=== PATIENT | male | born 1940 | race African-American/Black ===

== ENCOUNTER 2023-05-03 09:49 | Emergency (ER) | payer OTHER ==
[2023-05-03 10:15] VITALS: BMI 42.4
[2023-05-03 11:22] LABS: BASO % 0.6 % (0-2.0); EOS % 1.8 % (0-4.5); HEMATOCRIT 31.8 % (35.4-49); HEMOGLOBIN 10.4 GM/dL (11.7-16.9); LYMPH % 29.7 % (8-40); MCH 29.5 pg (25.7-33.7); MCHC 32.6 g/dl (32.0-35.9); MEAN CELL VOLUME 90.3 fl (80-96); MEAN PLT VOLUME 8.5 fl (7.5-11.1); MONO % 9.8 % (3.8-10.2); NEUT % 58.1 % (42.8-82.8); PLATELET COUNT 173 10^3/uL (134-434); RBC 3.52 M/mm3 (4.00-5.60); WHITE BLOOD COUNT 6.4 K/mm3 (4.0-10.0)
[2023-05-03 11:52] LABS: POTASSIUM 4.2 mmol/L (3.5-5.1)
[2023-05-03 11:54] LABS: CALCIUM 8.4 mg/dL (8.5-10.1)
[2023-05-03 11:55] LABS: BLOOD UREA NITROGEN 66.5 mg/dL (7-18)
[2023-05-03 11:57] LABS: CREATININE 4.9 mg/dL (0.55-1.3)
[2023-05-03 11:59] LABS: BILIRUBIN,TOTAL 0.3 mg/dL (0.2-1); TOT PROT 6.6 g/dl (6.4-8.2)
[2023-05-03] MEDS ORDERED: diphenhydrAMINE HCL 25 MG CAPSULE (FP) PO ONE ×2 (12:11→12:19)
[2023-05-03] MEDS ORDERED: ACETAMINOPHEN 500 MG TABLET (FP) PO ONE (12:11)
[2023-05-03] MEDS ORDERED: ACETAMINOPHEN 325 MG TABLET (FP) ONE (12:20)
[2023-05-03 12:37] VITALS: BP 186/85; PULSE 55; RESP 20; TEMP 97.3
== END 2023-05-03 12:37 | disposition home or self-care (01) ==
LOC: JER 09:49
DX: R10.9 Unspecified abdominal pain (principal)
CPT/HCPCS: 36415; 80053; 83690; 85025; 99283-25

== ENCOUNTER 2024-02-26 16:27 | Emergency (ER) | payer OTHER ==
[2024-02-26 16:43] VITALS: BMI 30.9
[2024-02-26 17:17] LABS: EOS % 2.2 % (0-4.5); HEMATOCRIT 33.9 % (35.4-49); HEMOGLOBIN 11.3 GM/dL (11.7-16.9); LYMPH % 31.1 % (8-40); MCH 31.5 pg (25.7-33.7); MCHC 33.3 g/dl (32.0-35.9); MEAN CELL VOLUME 94.9 fl (80-96); MEAN PLT VOLUME 7.3 fl (7.5-11.1); MONO % 16.8 % (3.8-10.2); NEUT % 48.9 % (42.8-82.8); PLATELET COUNT 146 10^3/uL (134-434); RBC 3.57 M/mm3 (4.00-5.60); RDW 15.7 % (11.9-15.9); WHITE BLOOD COUNT 6.4 K/mm3 (4.0-10.0)
[2024-02-26] MEDS ORDERED: FAMOTIDINE 20 MG/50 ML IVPB 20 MG/50 ML MG IVPB ONE (17:35)
[2024-02-26] MEDS: FAMOTIDINE 20 MG/50 ML IVPB 20 MG/50 ML MG IVPB ONE (17:43)
[2024-02-26 17:48] LABS: ALBUMIN 3.2 g/dl (3.4-5.0); BLOOD UREA NITROGEN 47.3 mg/dL (7-18); CALCIUM 8.6 mg/dL (8.5-10.1); MAGNESIUM 2.1 mg/dL (1.8-2.4); POTASSIUM 4.3 mmol/L (3.5-5.1)
[2024-02-26 17:51] LABS: BILIRUBIN,TOTAL 0.4 mg/dL (0.2-1); CREATININE 7.2 mg/dL (0.55-1.3); PHOSPHOROUS 4.2 mg/dL (2.5-4.9); TOT PROT 6.7 g/dl (6.4-8.2)
[2024-02-26 18:02] LABS: N-TERMINAL BNP 1905.4 pg/ml (5-450)
[2024-02-26 18:43] VITALS: BP 156/86; PULSE 57; RESP 20; TEMP 98.9
== END 2024-02-26 18:44 | disposition home or self-care (01) ==
LOC: JER 16:27
PROC: 3E033GC Introduction of Other Therapeutic Substance into Peripheral Vein, Percutaneous Approach (ICD-10-PCS; principal; 2024-02-26)
DX: I11.0 Hypertensive heart disease with heart failure (principal); I50.9 Heart failure, unspecified; J06.9 Acute upper respiratory infection, unspecified; R05.9 Cough, unspecified; R07.89 Other chest pain; Z20.822 Contact with and (suspected) exposure to COVID-19
CPT/HCPCS: 0241U-QW; 36415; 71045-TC-FY; 80053; 83735; 83880; 84100; 84484; 85025; 93005; 93010; 96365; 99285-25

== ENCOUNTER 2024-05-17 05:01 | Emergency (ER) | payer OTHER ==
[2024-05-17 05:14] VITALS: TEMP 97.9; BMI 34.3
[2024-05-17] MEDS ORDERED: ACETAMINOPHEN INJECTION 100 ML ONE (06:03)
[2024-05-17] MEDS: ACETAMINOPHEN 1000 MG/100 ML BAG IVPB ONE (06:29)
[2024-05-17 06:51] LABS: CHLORIDE 108 mmol/L (98-107); SODIUM 140 mmol/L (136-145)
[2024-05-17 06:53] LABS: ALBUMIN 3.5 g/dl (3.4-5.0); ANION GAP 8 mmol/L (4-13); BLOOD UREA NITROGEN 99.3 mg/dL (7-18); CALCIUM 9.3 mg/dL (8.5-10.1); CO2 25 mmol/L (21-32); GLUCOSE,RANDOM 98 mg/dL (74-106); MAGNESIUM 2.1 mg/dL (1.8-2.4)
[2024-05-17 06:56] LABS: SGOT/AST 13 U/L (15-37); SGPT/ALT 19 U/L (13-61)
[2024-05-17 06:57] LABS: BILIRUBIN,TOTAL 0.4 mg/dL (0.2-1); TOT PROT 7.3 g/dl (6.4-8.2)
[2024-05-17 06:59] LABS: ALK PHOS 57 U/L (45-117)
[2024-05-17 07:10] LABS: CREATININE 10.2 mg/dL (0.55-1.3)
[2024-05-17 09:15] LABS: CHLORIDE 108 mmol/L (98-107); POTASSIUM 5.8 mmol/L (3.5-5.1); SODIUM 142 mmol/L (136-145)
[2024-05-17 09:17] LABS: BLOOD UREA NITROGEN 99.8 mg/dL (7-18); GLUCOSE,RANDOM 82 mg/dL (74-106)
[2024-05-17 09:18] LABS: ANION GAP 8 mmol/L (4-13); CALCIUM 9.2 mg/dL (8.5-10.1); CO2 26 mmol/L (21-32)
[2024-05-17 09:33] LABS: CREATININE 10.1 mg/dL (0.55-1.3)
[2024-05-17] MEDS ORDERED: SODIUM CHLORIDE 250 ML IV PRN (09:41)
[2024-05-17 10:30] VITALS: BP 168/70; PULSE 58; RESP 16
== END 2024-05-17 10:36 | disposition home or self-care (01) ==
LOC: JER 05:01 → JERBED 08:56 → UNDOADMOB 08:56 → JER 10:36
PROC: 3E033NZ Introduction of Analgesics, Hypnotics, Sedatives into Peripheral Vein, Percutaneous Approach (ICD-10-PCS; principal; 2024-05-17)
DX: R10.32 Left lower quadrant pain (principal); I12.0 Hypertensive chronic kidney disease with stage 5 chronic kidney disease or end stage renal disease; N18.6 End stage renal disease; R11.2 Nausea with vomiting, unspecified; Z99.2 Dependence on renal dialysis
CPT/HCPCS: 36415; 74177-TC; 80048; 80053; 83690; 83735; 84484; 93005; 93010; 96374; 99285-25; J0131

== ENCOUNTER 2024-08-26 12:34 | Inpatient (IN) | payer OTHER ==
[2024-08-26] MEDS ORDERED: ACETAMINOPHEN INJECTION 100 ML ONE (13:41)
[2024-08-26] MEDS: ACETAMINOPHEN 1000 MG/100 ML BAG IVPB ONE (13:46)
[2024-08-26 14:05] LABS: VENOUS BASE EXCESS 5.3 mmol/L (-2-2); VENOUS O2 SATURATION 40.1 % (70-80); VENOUS PCO2 50.1 mmHg (38-52); VENOUS PH 7.41 (7.310-7.410)
[2024-08-26 14:07] LABS: BASO % 0.7 % (0-2.0); EOS % 0.1 % (0-4.5); HEMATOCRIT 34.8 % (35.4-49); HEMOGLOBIN 11.6 GM/dL (11.7-16.9); LYMPH % 12.5 % (8-40); MCH 32.4 pg (25.7-33.7); MCHC 33.3 g/dl (32.0-35.9); MEAN CELL VOLUME 97.5 fl (80-96); MEAN PLT VOLUME 8.2 fl (7.5-11.1); MONO % 16.6 % (3.8-10.2); NEUT % 70.1 % (42.8-82.8); PLATELET COUNT 243 10^3/uL (134-434); RBC 3.57 M/mm3 (4.00-5.60); RDW 13.6 % (11.9-15.9); WHITE BLOOD COUNT 12.6 K/mm3 (4.0-10.0)
[2024-08-26 14:13] LABS: INR 1.04 (0.83-1.09); PROTHROMBIN TIME (PATIENT) 11.3 SEC (9.7-13.0)
[2024-08-26 14:15] LABS: ACTIVATED PTT 27.1 SECONDS (25.2-36.5)
[2024-08-26 14:21] LABS: CHLORIDE 94 mmol/L (98-107); POTASSIUM 4.6 mmol/L (3.5-5.1); SODIUM 135 mmol/L (136-145)
[2024-08-26 14:23] LABS: ALBUMIN 3.3 g/dl (3.4-5.0); ANION GAP 9 mmol/L (4-13); BLOOD UREA NITROGEN 52.1 mg/dL (7-18); CALCIUM 9.5 mg/dL (8.5-10.1); CO2 32 mmol/L (21-32); GLUCOSE,RANDOM 113 mg/dL (74-106); MAGNESIUM 2.4 mg/dL (1.8-2.4)
[2024-08-26 14:26] LABS: SGOT/AST 12 U/L (15-37); SGPT/ALT 16 U/L (13-61)
[2024-08-26 14:28] LABS: TOT PROT 7.6 g/dl (6.4-8.2)
[2024-08-26 14:29] LABS: ALK PHOS 68 U/L (45-117)
[2024-08-26 14:32] LABS: BILIRUBIN,TOTAL 0.4 mg/dL (0.2-1); CREATININE 7.6 mg/dL (0.55-1.3)
[2024-08-26] MEDS: ONDANSETRON 4 MG/2 ML VIAL IVPUSH ONE ×2 (14:48→14:58)
[2024-08-26] MEDS ORDERED: ONDANSETRON 4 MG/2 ML VIAL ONE (14:49)
[2024-08-26] MEDS ORDERED: PIPERACILLIN/TAZOB 3.375 GM 3.375 GM/50 ML BAG IVPB ONE (16:46)
[2024-08-26] MEDS: PIPERACILLIN/TAZOB 3.375 GM 3.375 GM in DEXTROSE 5%-WATER - 50 ML IVPB ONE (16:53)
[2024-08-26 17:04] LABS: EPI CELLS 6 /uL (0-25.1); HYALINE CASTS 1 /uL (0-3.1); URINE APPEARANCE CLOUDY; URINE BACTERIA 280 /uL (0-1359); URINE BILIRUBIN NEGATIVE (NEGATIVE); URINE COLOR YELLOW; URINE GLUCOSE (UA) NEGATIVE (NEGATIVE); URINE KETONE NEGATIVE (NEGATIVE); URINE LEUK ESTERASE 2+ (NEGATIVE); URINE NITRITE NEGATIVE (NEGATIVE); URINE PROTEIN 3+ (NEGATIVE); URINE RBC 66 /uL (0-23.9); URINE UROBILINOGEN 0.2 mg/dL (0.2-1.0); URINE WBC 844 /uL (0-25.8)
[2024-08-26] MEDS ORDERED: VANCOMYCIN 1 GM PREMIX (F) 1 GM/200 ML BAG ONE (17:23)
[2024-08-26] MEDS: VANCOMYCIN 1,000 MG in DEXTROSE 5%-WATER - 250 ML IVPB ONE (17:35)
[2024-08-26] MEDS: MELATONIN 5 MG TABLETS PO ONE (21:17)
[2024-08-26] MEDS: hydrALAZINE HCL 50 MG TABLET (FP) PO SCH (21:17)
[2024-08-26] MEDS: ACETAMINOPHEN 325 MG TABLET (FP) PO PRN (21:17)
[2024-08-26] MEDS: ATORVASTATIN CA 40 MG TABLET (FP) PO SCH (21:17)
[2024-08-26] MEDS: PIPERACILLIN/TAZOB 2.25 GM 2.25 GM/50 ML BAG IVPB SCH (21:21)
[2024-08-26] MEDS ORDERED: PIPERACILLIN/TAZOB 2.25 GM 2.25 GM in DEXTROSE 5%-WATER - 50 ML IVPB SCH (22:00)
[2024-08-27] MEDS ORDERED: ONDANSETRON 4 MG/2 ML VIAL IVPUSH PRN (07:34)
[2024-08-27] MEDS: NIFEdipine E.R. 90 MG TABLET PO SCH (09:11)
[2024-08-27] MEDS: ASPIRIN COATED 81 MG TABLET.EC PO SCH (09:11)
[2024-08-27] MEDS ORDERED: SODIUM CHLORIDE 250 ML IV PRN (10:40)
[2024-08-27] MEDS: PANTOPRAZOLE SODIUM 40 MG VIAL IVPUSH SCH (10:55)
[2024-08-27] MEDS: POLYETHYLENE GLYCOL (HEALTHYLAX) 3350 17 GM PACKET PO SCH (21:11)
[2024-08-28] MEDS: PIPERACILLIN/TAZOB 2.25 GM 2.25 GM/50 ML BAG IVPB SCH (12:15)
[2024-08-29 10:19] LABS: HEMATOCRIT 31.7 % (35.4-49); HEMOGLOBIN 10.5 GM/dL (11.7-16.9); MCH 32.3 pg (25.7-33.7); MCHC 33.2 g/dl (32.0-35.9); MEAN CELL VOLUME 97.4 fl (80-96); MEAN PLT VOLUME 7.6 fl (7.5-11.1); PLATELET COUNT 264 10^3/uL (134-434); RBC 3.26 M/mm3 (4.00-5.60); RDW 13.6 % (11.9-15.9); WHITE BLOOD COUNT 11.3 K/mm3 (4.0-10.0)
[2024-08-29] MEDS ORDERED: SODIUM CHLORIDE 250 ML IV PRN (14:06)
[2024-08-30] MEDS: HEPARIN NA (PORCINE) 5,000 UNITS/ML 1ML VIAL IVPUSH ONE (08:50)
[2024-08-30 09:01] LABS: HEMATOCRIT 29.8 % (35.4-49); HEMOGLOBIN 9.8 GM/dL (11.7-16.9); MCH 32.5 pg (25.7-33.7); MEAN CELL VOLUME 98.5 fl (80-96); MEAN PLT VOLUME 7.6 fl (7.5-11.1); PLATELET COUNT 276 10^3/uL (134-434); RBC 3.03 M/mm3 (4.00-5.60); RDW 13.4 % (11.9-15.9); WHITE BLOOD COUNT 11.9 K/mm3 (4.0-10.0)
[2024-08-30 09:22] LABS: CHLORIDE 96 mmol/L (98-107); POTASSIUM 4.1 mmol/L (3.5-5.1); SODIUM 136 mmol/L (136-145)
[2024-08-30 09:35] LABS: ANION GAP 12 mmol/L (4-13); BLOOD UREA NITROGEN 68.4 mg/dL (7-18); CALCIUM 8.9 mg/dL (8.5-10.1); CO2 28 mmol/L (21-32); GLUCOSE,RANDOM 136 mg/dL (74-106)
[2024-08-30 09:43] LABS: CREATININE 10.4 mg/dL (0.55-1.3)
[2024-08-30 13:28] VITALS: RESP 18
[2024-08-31] MEDS: PANTOPRAZOLE 40 MG TABLET PO SCH (10:42)
[2024-08-31] MEDS ORDERED: SODIUM CHLORIDE 250 ML IV PRN (10:45)
[2024-08-31] MEDS: BANATROL PLUS POWDER PACKET PO SCH (14:38)
[2024-09-01 09:29] LABS: HEMATOCRIT 31.6 % (35.4-49); HEMOGLOBIN 10.6 GM/dL (11.7-16.9); MCH 32.4 pg (25.7-33.7); MCHC 33.4 g/dl (32.0-35.9); MEAN PLT VOLUME 7.6 fl (7.5-11.1); PLATELET COUNT 341 10^3/uL (134-434); RBC 3.26 M/mm3 (4.00-5.60); RDW 13.2 % (11.9-15.9); WHITE BLOOD COUNT 11.1 K/mm3 (4.0-10.0)
[2024-09-01] MEDS: EPOETIN ALFA-EPBX 4,000 UNIT/ML VIAL IVPUSH ONE (10:47)
[2024-09-01] MEDS: LACTOBACILLUS ACIDOPHILUS 1 TABLET PO SCH (13:18)
[2024-09-01 14:40] VITALS: BMI 34.3
[2024-09-01 15:13] VITALS: BP 120/62; PULSE 64; TEMP 97.7
== END 2024-09-01 18:27 | disposition home or self-care (01) | DRG 193 ==
LOC: JER 12:34 → JERBED 15:47 → J6S 18:21
PROVIDERS: ADMIT Family Medicine; ATTEND Family Medicine
PROC: 5A1D70Z Performance of Urinary Filtration, Intermittent, Less than 6 Hours Per Day (ICD-10-PCS; principal; 2024-08-28)
PROC: 5A1D70Z Performance of Urinary Filtration, Intermittent, Less than 6 Hours Per Day (ICD-10-PCS; 2024-08-30)
PROC: 5A1D70Z Performance of Urinary Filtration, Intermittent, Less than 6 Hours Per Day (ICD-10-PCS; 2024-09-01)
DX: J18.9 Pneumonia, unspecified organism (principal); N18.6 End stage renal disease; N39.0 Urinary tract infection, site not specified; I13.2 Hypertensive heart and chronic kidney disease with heart failure and with stage 5 chronic kidney disease, or end stage renal disease; G51.32 Clonic hemifacial spasm, left; E78.5 Hyperlipidemia, unspecified; M10.9 Gout, unspecified; R11.2 Nausea with vomiting, unspecified; D63.1 Anemia in chronic kidney disease; B96.20 Unspecified Escherichia coli [E. coli] as the cause of diseases classified elsewhere; K59.00 Constipation, unspecified; H40.9 Unspecified glaucoma; R50.9 Fever, unspecified; D72.829 Elevated white blood cell count, unspecified; E11.22 Type 2 diabetes mellitus with diabetic chronic kidney disease; I50.9 Heart failure, unspecified; Z99.2 Dependence on renal dialysis
CPT/HCPCS: 0241U-QW; 36415; 71045-TC-FY; 71250-TC; 74018-TC-FY; 76700-TC; 80048; 80053; 81003; 82803; 83605; 83690; 83735; 84100; 85025; 85027; 85610; 85730; 86705; 86803; 86850; 86900; 86901; 87086; 87186; 87340; 87899; 93005; 93010; 99285-25; J0131; J1644; Q5106